=== PATIENT | male | born 1980 | race Hispanic/Latino ===

== ENCOUNTER 2017-03-14 18:46 | Emergency (ER) | payer OTHER ==
[~2017-03-14] VITALS: Ht 170.2 cm; Wt 81.6 kg
[2017-03-14 19:12] VITALS: BP 121/70
--- NOTE | 2017-03-14 19:31 | ED HEAD/FACIAL INJ COMPLAINT ---
History of Present Illness General Chief Complaint: Laceration Procedure Stated Complaint: LIP LAC Source: patient, old records Exam Limitations: no limitations Vital Signs & Intake/Output Vital Signs & Intake/Output Vital Signs Date Time Temp Pulse Resp B/P Pulse O2 O2 Flow FiO2 Ox Delivery Rate 03/14 1912 98.9 94 18 121/70 100 Room Air Allergies Coded Allergies: No Known Allergies (03/14/17) Reconcile Medications Amoxicillin/Potassium Clav (Augmentin 875-125 Tablet) 875 MG-125 MG TABLET 1 TAB PO BID ppx Triage Note: PT TO TRIAGE WITH C/O LAC TO LOWER LIP S/P HIT IN FACE WHILE PLAYING FOOTBALL. BLEEDING CONTROLLED. 1ST LEFT LOWER TOOTH IS MISSING. VSS. LAST TETANUS VACCINATION 1 YEAR AGO. Triage Nurses Notes Reviewed? yes Onset: Abrupt Severity: mild, moderate Severity Numbers: 4 Location: frontal Method of Injury: direct blow Loss of Consciousness: no loss of consciousness Associated Symptoms: denies HPI: 37-year-old male presents emergency room status post sustaining laceration to his lower rib just prior to arrival when he accidentally was elbowed involving football catch. Now he presents with mild to moderate aching pain laceration and is missing a lower tooth. No other injury is up-to-date on his tetanus.. Is not taken anything for symptoms or no modifying factors or associated symptoms otherwise no tongue injury ([facility] BILLS) Past History Travel History Traveled to [place] past 21 day No Medical History Any Pertinent Medical History? none Surgical History Surgical History: none Psychosocial History What is your primary language Italian Tobacco Use: Never used Family History Hx Contributory? No ([facility]UNIOR BILLS) Review of Systems Review of Systems Constitutional: Reports: see HPI. All Other Systems: Reviewed and Negative Comments Review of systems: See HPI, All other systems negative. Constitutional, no chills no fever, no malaise HEENT: no sore throat no congestion Cardiovascular: No chest pain , no palpitation , Skin, no rashes, no change in skin Respiratory: No dyspnea no cough no sputum GI: No nausea no vomiting, no diarrhea, Muscle skeletal: No joint pain, no back pain, no neck pain, Neurologic: No numbness , no headache Psych: No stress Heme/endocrine: No bruising no bleeding Immunology: No lymphadenopathy ([facility]IOR BILLS) Physical Exam Physical Exam General Appearance: well developed/nourished, no apparent distress, alert, awake Cranial Nerves: normal hearing, normal speech, PERRL Comments: Well-developed well-nourished patient in no apparent distress. Head/Face: Atraumatic, no maxillary/frontal sinus tenderness, no facial swelling Eyes: PERRL, EOMI, no conjunctival injection Ear:External auditory canals normal. Nose: atraumatic.Normal inspection: No bleeding, no septal hematoma Throat: Moist mucous membranes.there is a 1.0 cm superficial linear laceration noted to the lower lip that is not involving the demetria border, the tongue laceration , , there is a missing lower #8 no active bleeding Pharynx normal. No pharyngeal erythema/exudate seen. No stridor/drooling or assymetry. No swelling or edema. Neck: Supple, no lymphadenopathy, FROM Back: FROM, Nontender Cardiovascular: Regular rate and rhythms no murmurs rubs Respiratory: No respiratory distress. Patient speaking in full complete sentences. Breath sounds clear to auscultation bilaterally: NO W/R/R Extremities: full range of motion Neuro: Alert and oriented x3 Skin: Warm & dry;No appreciable rash on exposed skin Psych: Mood affect normal, normal memory normal judgment. ([facility]UNIOR BILLS) Progress Differential Diagnosis: facial fracture dental trauma laceration Plan of Care: Current Medications Sig/Shante Start time Last Medication Dose Stop Time Status Admin Amoxicillin/ 1,000 MG ONCE ONE 03/14 2000 UNVr Clavulanate Potassium 03/14 2001 (Augmentin) Wound was anesthetized with lidocaine 4 mL, sutures 5 6-0 applied by me patient tolerated procedure well make you Augmentin Motrin tetanus is up-to-date. Discussed with him the possible a foreign body still exist, the wound was thoroughly irrigated discussed with them the sutures will disslove on their own, prescription for Augmentin provided answer other questions if a couple plan cleared for discharge ([facility] BILLS) Departure Departure Time of Disposition: 1954 Disposition: HOME OR SELF CARE Condition: Stable Clinical Impression Primary Impression: Lip laceration Referrals: JACKSON GREY MD (PCP/Family) Additional Instructions: Rest ice and Tylenol Motrin if needed for pain. Augmentin as discussed [facility] Return with any concerns or signs of infection: Redness warmth swelling discharge fever or chills. Departure Forms: Customer Survey General Discharge Information Prescriptions: Current Visit Scripts Amoxicillin/Potassium Clav (Augmentin 875-125 Tablet) 1 TAB PO BID #14 TAB (YUNIOR BILLS) PA/P[employer]CHER AND FASTENER Co-Sign Statement Statement: ED Attending supervision documentation- [] I saw and evaluated the patient. I have also reviewed all the pertinent lab results and diagnostic results. I agree with the findings and the plan of care as documented in the PA's/PUNCHER AND FASTENER's documentation. [x] I have reviewed the ED Record and agree with the PA's/PUNCHER AND FASTENER's documentation. [] Additions or exceptions (if any) to the PAs/PUNCHER AND FASTENER's note and plan are summarized below: [] (CAREN HELMS,HARVEY Davies) Procedures Laceration/Wound Repair Laceration/Wound Repair: Wound Location: mouth Wound's Depth, Shape: linear, superficial Wound Length (cm): 1.0 Wound Explored: clean, no foreign body removed, irrigated extensively Irrigated w/ Saline (ccs): 5 Betadine Prep? No Anesthesia: 1% lidocaine Volume Anesthetic (ccs): 4 Wound Repaired With: sutures Suture Size/Type: 6:0 Number of Sutures: 4 Layer Closure? No Tetanus Status: up to date ([facility] BILLS)
[2017-03-14] MEDS ORDERED: AUGMENTIN 875-1 EACH PO (19:56)
== END 2017-03-14 20:03 ==
LOC: ERH 18:46
DX: S01.511A Laceration without foreign body of lip, initial encounter (principal); W51.XXXA Accidental striking against or bumped into by another person, initial encounter; Y93.61 Activity, american tackle football
CPT/HCPCS: J3490